=== PATIENT | male | born 1960 | race Hispanic/Latino ===

== ENCOUNTER → 2024-01-29 06:56 | Outpatient (REF) | payer BC, SELFPAY | LOC: RAD 06:56 | PROVIDERS: ATTENDING PHYSICIAN Nurse Practitioner Family | DX: Z76.89 Persons encountering health services in other specified circumstances (principal); E78.2 Mixed hyperlipidemia | CPT/HCPCS: 75571 ==

== ENCOUNTER → 2025-05-12 10:52 | Outpatient (REF) | payer BC, SELFPAY | LOC: HWRAD 10:52 | PROVIDERS: ATTENDING PHYSICIAN Nurse Practitioner Family | DX: R42 Dizziness and giddiness (principal); G25.2 Other specified forms of tremor | CPT/HCPCS: 70450 ==

== ENCOUNTER 2025-07-06 06:29 | Day surgery (SDC) | payer BC, SELFPAY | END 2025-07-06 14:26 | disposition home or self-care (01) | LOC: GI 06:29 | PROVIDERS: ATTENDING PHYSICIAN Internal Medicine Gastroenterology | DX: Z12.11 Encounter for screening for malignant neoplasm of colon (principal); D12.2 Benign neoplasm of ascending colon; D12.8 Benign neoplasm of rectum; Z80.0 Family history of malignant neoplasm of digestive organs | CPT/HCPCS: 45385; 45381; 88305 ==